=== PATIENT | male | born 1945 | race Caucasian/White ===

== ENCOUNTER 2016-12-05 04:36 | Inpatient (IN) | payer MEDICARE, BC ==
[~2016-12-05] VITALS: Ht 190.5 cm; Wt 109.8 kg
--- NOTE | 2016-12-05 04:55 | NUR ---
Patient BIB private ambulance from [facility] for Medical Clearance and GPS admission. Patient arrives on 5150 hold for DTS. Per hold, patient recently broke up with his girlfriend after which he was found on the roof of a parking structure sending text messages that indicated SI to his girlfriend who states that "if you let him go tonight he will kill himself." To room 4B. Patient A/O x4, ambulatory with a steady gait, calm and cooperative with staff. BECKIED reviewed medical clearance, orders received.
[2016-12-05] MEDS ORDERED: TESTOSTERONE CYPIONATE (05:07)
[2016-12-05] MEDS ORDERED: CIALIS 5 MG (05:07)
[2016-12-05] MEDS ORDERED: ATORVASTATIN 80 MG TABLET (05:07)
[2016-12-05] MEDS ORDERED: METOPROLOL TARTRATE 25 MG TAB (05:08)
[2016-12-05] MEDS ORDERED: VYVANSE 30 MG (05:08)
[2016-12-05] MEDS ORDERED: PROAIR HFA 90 MCG INHALER (05:08)
[2016-12-05] MEDS ORDERED: CLOPIDOGREL 75 MG TABLET (05:08)
[2016-12-05] MEDS ORDERED: [UNRECOGNIZED DRUG - REMARK] (05:08)
--- NOTE | 2016-12-05 05:08 | NUR ---
PT UNABLE TO GIVE ME THE NAMES OF HIS MEDS.STATES HE CAN GET THEM FROM FAMILY MEMBER LATER ON THIS AM.MEDICATIONS SHOWN ARE THE MEDS THAT APPEAR WHEN PTS LIST THEIR PHARMACY.NO FREQUENCY SHOWN
--- NOTE | 2016-12-05 05:28 | NUR ---
Pt. admitted to GPS, under care of Dr. Castañeda Belongs List completed
[2016-12-05 06:10] VITALS: BP 111/74
[2016-12-05] MEDS ORDERED: MAG HYDROX/AL HYDROX/SIMETH 30 ML LIQUID UDC PO PRN (06:15)
[2016-12-05] MEDS ORDERED: LORAZEPAM 1 MG TABLET PO PRN (06:15)
[2016-12-05] MEDS ORDERED: MAGNESIUM HYDROXIDE 30 ML LIQUID UDC PO PRN (06:15)
[2016-12-05] MEDS ORDERED: ACETAMINOPHEN 325 MG TABLET PO PRN (06:15)
[2016-12-05] MEDS ORDERED: TEMAZEPAM 7.5 MG CAPSULE PO PRN (06:15)
[2016-12-05 07:30] VITALS: BP 109/67
--- NOTE | 2016-12-05 07:46 | NUR ---
GPS/NSG Patient is a 71 yr old male admitted on a 5150 Danger to self from [facility]. Patient presented to the Emergency Room at [facility] after he drank an entire bottle of wine and told his girlfriend who had just broken up with him that he was going to kill himself. On arrival patient denied suicidal ideation or intent, stated he did not mean what he said. Patient has no psychiatric history and is admitted under the care of Dr. Castañeda. Patient skin is bruised pictures taken and documented in chart. Niece called, message left. Will endorse to next shift to clarify medication history the dosages, frequency and route are unclear.Initiate plan of care. Monitor for safety.
[2016-12-05] MEDS ORDERED: INSULIN REGULAR, HUMAN 300 UNIT/3 ML VIAL SQ PRN (09:45)
[2016-12-05] MEDS ORDERED: INSULIN REGULAR, HUMAN 300 UNITS/3 ML VIAL SQ PRN (09:45)
[2016-12-05] MEDS ORDERED: DEXTROSE 50% 50 ML DISP.SYRIN IV PRN (09:45)
[2016-12-05] MEDS: CLOPIDOGREL 75 MG TABLET PO SCH (10:30)
[2016-12-05] MEDS: METOPROLOL TARTRATE 25 MG TABLET PO SCH ×2 (10:39→20:36)
[2016-12-05] MEDS ORDERED: BLOOD SUGAR DIAGNOSTIC 1 EACH STRIP VI SCH (11:30)
[2016-12-05 16:09] VITALS: BP 117/77
[2016-12-05 20:02] VITALS: BP 110/66
[2016-12-05] MEDS: TRAZODONE 50 MG TABLET PO SCH (20:36)
[2016-12-05] MEDS: ATORVASTATIN 40 MG TABLET PO SCH (20:40)
[2016-12-05] MEDS ORDERED: TRAZODONE 50 MG TABLET ONE (20:46)
[2016-12-06 07:50] VITALS: BP 96/50
[2016-12-06] MEDS: CLOPIDOGREL 75 MG TABLET PO SCH (08:59)
[2016-12-06] MEDS: METOPROLOL TARTRATE 25 MG TABLET PO SCH ×2 (09:00→20:01)
--- NOTE | 2016-12-06 12:10 | NUR ---
Initial discharge instructions: Pt resides at home with his srinath [[id number] ,[place], [place],[address];[phone]].Per pt,he would like to return home upon discharge.NOAM called pt's Freya RANDOLPH [phone] to discuss discharge plans,but no answer.NOAM will speak with pt,srinath kyle,and MD regarding appropriate discharge plans.SW will form a safe and proper discharge plan.
[2016-12-06 15:00] VITALS: BP 123/76
[2016-12-06] MEDS: ATORVASTATIN 40 MG TABLET PO SCH (20:01)
[2016-12-06] MEDS: TRAZODONE 50 MG TABLET PO SCH (20:01)
[2016-12-06 20:10] VITALS: BP 126/76
[2016-12-07 07:47] VITALS: BP 112/56
[2016-12-07 07:48] LABS: BASOPHILS % (AUTO) 0.1 % (0.0-2.0); EOSINOPHILS # (AUTO) 0.5 K/uL (0.0-0.7); EOSINOPHILS % (AUTO) 1.1 % (0.0-7.0); HEMATOCRIT 47.7 % (40-50); HEMOGLOBIN 16.4 G/DL (14.0-18.0); LYMPHOCYTES # (AUTO) 40.9 K/UL (0.8-4.8); LYMPHOCYTES % (AUTO) 86.5 % (20.5-51.5); MEAN CORPUSCULAR HEMOGLOBIN 30.8 UUG (27.0-31.0); MEAN CORPUSCULAR HGB CONC 34 g/dL (32.0-37.0); MEAN CORPUSCULAR VOLUME 89.8 FL (82.0-92.0); MONOCYTES # (AUTO) 1.1 K/UL (0.1-1.30); MONOCYTES % (AUTO) 2.3 % (0.0-11.0); NEUTROPHILS # (AUTO) 4.7 K/UL (1.8-8.9); PLATELET COUNT (AUTO) 120 K/UL (150-450); RED BLOOD CELL COUNT(AUTO) 5.32 MIL/UL (4.7-6.1)
[2016-12-07 07:59] LABS: WHITE BLOOD COUNT (AUTO) 47.2 K/UL (4.0-11.2)
[2016-12-07 08:07] LABS: CREATININE 1.5 mg/dL (0.6-1.3); MAGNESIUM 2.2 mg/dL (1.8-2.4); PHOSPHOROUS 3.3 mg/dL (2.5-4.9)
--- NOTE | 2016-12-07 08:15 | NUR ---
GPS: Nursing Notes: Critical Value: At 07:55 got a call from Lab: Aaron Cohen: Critical value WBC= 47.2. 0800 Randall Michael, TIARA was page. [phone] Dr. Sarabia, called back, he was informed that patient WBC=47.2 and has a history of Leukemia and on 12/05/16 WBC=[address] [facility]. He stated that "he will follow up". No further orders were given at this time continue with treatment plan.
[2016-12-07] MEDS: CLOPIDOGREL 75 MG TABLET PO SCH (09:00)
[2016-12-07] MEDS: METOPROLOL TARTRATE 25 MG TABLET PO SCH ×2 (09:01→20:17)
[2016-12-07 11:24] LABS: EOSINOPHILS % (MANUAL) 1 % (0-8); LYMPHOCYTES % (MANUAL) 87 % (20-40); MONOCYTES % (MANUAL) 2 % (2-10); NEUTROPHILS % (MANUAL) 10 % (42-75)
[2016-12-07 15:11] VITALS: BP 105/64
[2016-12-07 15:52] LABS: *BILIRUBIN,URIN NEGATIVE (NEGATIVE); *BLOOD, URINE 1+ (NEGATIVE); *CLARITY,URINE CLEAR (CLEAR); *COLOR,URINE YELLOW (YELLOW); *KETONES,URINE NEGATIVE (NEGATIVE); *PROTEIN,URINE NEGATIVE (NEGATIVE); *UROBILINOGEN,URINE 0.2 E.U./dl (NORMAL); LEUKOCYTE ESTERASE ,URINE NEGATIVE (NEGATIVE); NITRITE, URINE NEGATIVE (NEGATIVE); PH,URINE 5.5 (5.0-8.0); UGLUCOSE NEGATIVE (NEGATIVE)
[2016-12-07 16:21] LABS: *CREATININE,URINE 33.7 mg/dL (30-125)
[2016-12-07 16:28] LABS: *URINE TOTAL PROTEIN RANDOM < 6.0 mg/dL (<150/24HR)
[2016-12-07] MEDS: CLONAZEPAM 0.5 MG TABLET PO SCH (16:42)
[2016-12-07 17:26] LABS: WBC,URINE NONE SEEN /HPF (0-3)
[2016-12-07] MEDS: TRAZODONE 50 MG TABLET PO SCH (20:17)
[2016-12-07] MEDS: ATORVASTATIN 40 MG TABLET PO SCH (20:17)
[2016-12-07 20:21] VITALS: BP 118/69
[2016-12-08 07:30] VITALS: BP 103/64
[2016-12-08 07:49] LABS: BASOPHILS # (AUTO) 0.2 K/uL (0.0-8.0); BASOPHILS % (AUTO) 0.5 % (0.0-2.0); EOSINOPHILS # (AUTO) 0.5 K/uL (0.0-0.7); HEMOGLOBIN 16.4 G/DL (14.0-18.0); LYMPHOCYTES # (AUTO) 41.6 K/UL (0.8-4.8); LYMPHOCYTES % (AUTO) 83.1 % (20.5-51.5); MEAN CORPUSCULAR HEMOGLOBIN 30.6 UUG (27.0-31.0); MEAN CORPUSCULAR HGB CONC 34 g/dL (32.0-37.0); MEAN CORPUSCULAR VOLUME 89.6 FL (82.0-92.0); MONOCYTES # (AUTO) 1.8 K/UL (0.1-1.30); MONOCYTES % (AUTO) 3.7 % (0.0-11.0); NEUTROPHILS # (AUTO) 5.8 K/UL (1.8-8.9); NEUTROPHILS % (AUTO) 11.7 % (38.5-71.5); PLATELET COUNT (AUTO) 122 K/UL (150-450); RED BLOOD CELL COUNT(AUTO) 5.36 MIL/UL (4.7-6.1)
--- NOTE | 2016-12-08 08:05 | NUR ---
0753 Received a critical value WBC -49.9. 0800 SIX SIGMA PROJECT MANAGER, Ely Beaulieu notified with no further order. Patient has Dx. Chronic Lymphocytic Leukemia and patient already seen by bindery leadperson yesterday.
[2016-12-08 08:10] LABS: THYROID STIMULATING HORMONE 1.817 mIU/mL (0.358-3.740); WHITE BLOOD COUNT (AUTO) 49.9 K/UL (4.0-11.2)
[2016-12-08] MEDS: CLOPIDOGREL 75 MG TABLET PO SCH (08:11)
[2016-12-08] MEDS: CLONAZEPAM 0.5 MG TABLET PO SCH ×3 (08:12→18:01)
[2016-12-08] MEDS: METOPROLOL TARTRATE 25 MG TABLET PO SCH ×2 (08:13→21:00)
[2016-12-08 09:34] LABS: BILIRUBIN,TOTAL 1.8 mg/dL (0.2-1.0); CREATININE 1.4 mg/dL (0.6-1.3); PHOSPHOROUS 3.6 mg/dL (2.5-4.9); POTASSIUM 4.5 mmol/L (3.5-5.1); TOTAL PROTEIN, SERUM 6.6 g/dL (6.4-8.2)
[2016-12-08 11:02] LABS: LYMPHOCYTES % (MANUAL) 82 % (20-40); MONOCYTES % (MANUAL) 3 % (2-10); NEUTROPHILS % (MANUAL) 15 % (42-75)
[2016-12-08 16:00] VITALS: BP 100/73
[2016-12-08 19:58] VITALS: BP 114/69
[2016-12-08] MEDS: ATORVASTATIN 40 MG TABLET PO SCH (20:28)
[2016-12-08] MEDS: TRAZODONE 50 MG TABLET PO SCH (20:28)
[2016-12-09 07:30] VITALS: BP 122/69
[2016-12-09] MEDS: CLONAZEPAM 0.5 MG TABLET PO SCH ×3 (08:58→16:38)
[2016-12-09] MEDS: CLOPIDOGREL 75 MG TABLET PO SCH (08:58)
[2016-12-09] MEDS: METOPROLOL TARTRATE 25 MG TABLET PO SCH ×2 (09:00→20:15)
[2016-12-09 10:49] VITALS: BP 114/80
[2016-12-09 16:00] VITALS: BP 123/63
[2016-12-09] MEDS: CEPHALEXIN MONOHYDRATE 500 MG CAPSULE PO SCH ×2 (16:38→22:17)
--- NOTE | 2016-12-09 18:50 | NUR ---
GPS/RN- KULDIP 1700 DOSE. PATIENT VERBALIZING HE DOES NOT NEED DOSE. HE EXERCISES SO HE WALKS A LOT HE DOES AT HOME. VERBALIZES HE IS NOT ANXIOUS.
[2016-12-09 20:14] VITALS: BP 128/80
[2016-12-09] MEDS: TRAZODONE 50 MG TABLET PO SCH (20:14)
[2016-12-09] MEDS: ATORVASTATIN 40 MG TABLET PO SCH (20:14)
[2016-12-10] MEDS: CEPHALEXIN MONOHYDRATE 500 MG CAPSULE PO SCH ×3 (05:36→21:47)
[2016-12-10 07:30] VITALS: BP 111/60
[2016-12-10] MEDS: METOPROLOL TARTRATE 25 MG TABLET PO SCH ×2 (09:00→21:00)
[2016-12-10] MEDS: CLONAZEPAM 0.5 MG TABLET PO SCH ×4 (09:00→17:00)
[2016-12-10] MEDS: CLOPIDOGREL 75 MG TABLET PO SCH (10:04)
[2016-12-10 15:27] VITALS: BP 119/75
--- NOTE | 2016-12-10 18:30 | NUR ---
PATIENT HAS BEEN VISIBLE ALL SHIFT PACING HALLWAY, REFUSES TO TAKE KLONOPIN AND TAKE ANTIBIOTICS THIS SHIFT NO S.I. COMPLIANT WITH MILIEU
[2016-12-10 20:07] VITALS: BP 117/75
[2016-12-10] MEDS: ATORVASTATIN 40 MG TABLET PO SCH (21:47)
[2016-12-10] MEDS: TRAZODONE 50 MG TABLET PO SCH (21:47)
[2016-12-11] MEDS: CEPHALEXIN MONOHYDRATE 500 MG CAPSULE PO SCH ×3 (06:47→21:49)
[2016-12-11 07:50] LABS: BILIRUBIN,TOTAL 1.8 mg/dL (0.2-1.0); CREATININE 1.4 mg/dL (0.6-1.3); MAGNESIUM 2.2 mg/dL (1.8-2.4); PHOSPHOROUS 2.5 mg/dL (2.5-4.9); TOTAL PROTEIN, SERUM 6.9 g/dL (6.4-8.2)
[2016-12-11 07:59] LABS: BASOPHILS # (AUTO) 0.5 K/uL (0.0-8.0); BASOPHILS % (AUTO) 1.1 % (0.0-2.0); EOSINOPHILS # (AUTO) 0.6 K/uL (0.0-0.7); EOSINOPHILS % (AUTO) 1.3 % (0.0-7.0); HEMATOCRIT 47.7 % (40-50); HEMOGLOBIN 16.5 G/DL (14.0-18.0); LYMPHOCYTES % (AUTO) 81.9 % (20.5-51.5); MEAN CORPUSCULAR HEMOGLOBIN 30.4 UUG (27.0-31.0); MEAN CORPUSCULAR HGB CONC 35 g/dL (32.0-37.0); MEAN CORPUSCULAR VOLUME 87.8 FL (82.0-92.0); MONOCYTES # (AUTO) 1.4 K/UL (0.1-1.30); MONOCYTES % (AUTO) 3.2 % (0.0-11.0); NEUTROPHILS # (AUTO) 5.6 K/UL (1.8-8.9); NEUTROPHILS % (AUTO) 12.5 % (38.5-71.5); PLATELET COUNT (AUTO) 115 K/UL (150-450); RED BLOOD CELL COUNT(AUTO) 5.44 MIL/UL (4.7-6.1)
[2016-12-11 08:07] LABS: WHITE BLOOD COUNT (AUTO) 45.1 K/UL (4.0-11.2)
[2016-12-11] MEDS: METOPROLOL TARTRATE 25 MG TABLET PO SCH ×2 (08:57→21:00)
[2016-12-11] MEDS: CLONAZEPAM 0.5 MG TABLET PO SCH ×3 (08:57→17:00)
[2016-12-11] MEDS: CLOPIDOGREL 75 MG TABLET PO SCH (08:57)
[2016-12-11 11:15] LABS: EOSINOPHILS % (MANUAL) 2 % (0-8); LYMPHOCYTES % (MANUAL) 81 % (20-40); MONOCYTES % (MANUAL) 4 % (2-10); NEUTROPHILS % (MANUAL) 13 % (42-75)
[2016-12-11 15:00] VITALS: BP 126/80
[2016-12-11 20:14] VITALS: BP 104/78
[2016-12-11] MEDS: TRAZODONE 50 MG TABLET PO SCH (21:46)
[2016-12-11] MEDS: ATORVASTATIN 40 MG TABLET PO SCH (21:46)
[2016-12-12] MEDS: CEPHALEXIN MONOHYDRATE 500 MG CAPSULE PO SCH ×3 (05:38→21:44)
[2016-12-12 07:30] VITALS: BP 119/77
[2016-12-12] MEDS: METOPROLOL TARTRATE 25 MG TABLET PO SCH ×2 (08:19→21:00)
[2016-12-12] MEDS: CLONAZEPAM 0.5 MG TABLET PO SCH ×3 (08:19→16:34)
[2016-12-12] MEDS: CLOPIDOGREL 75 MG TABLET PO SCH (08:19)
[2016-12-12 15:43] VITALS: BP 126/81
[2016-12-12 20:06] VITALS: BP 125/74
[2016-12-12] MEDS: ATORVASTATIN 40 MG TABLET PO SCH (21:37)
[2016-12-12] MEDS: TRAZODONE 50 MG TABLET PO SCH (21:37)
[2016-12-13] MEDS: CEPHALEXIN MONOHYDRATE 500 MG CAPSULE PO SCH ×3 (05:49→21:57)
[2016-12-13 07:30] VITALS: BP 108/66
[2016-12-13] MEDS: CLOPIDOGREL 75 MG TABLET PO SCH (08:33)
[2016-12-13] MEDS: METOPROLOL TARTRATE 25 MG TABLET PO SCH ×2 (08:37→21:57)
[2016-12-13] MEDS: CLONAZEPAM 0.5 MG TABLET PO SCH ×3 (08:37→17:00)
[2016-12-13 17:09] VITALS: BP 115/72
[2016-12-13 20:00] VITALS: BP 132/81
--- NOTE | 2016-12-13 20:00 | NUR ---
PATIENT RECEIVED SITTING IN DAYROOM WATCHING TV. PT IS CALM AND COOPERATIVE. DENIES SUICIDAL/HOMICIDAL IDEATIONS. WILL CONTINUE TO MONITOR FOR SAFETY.
[2016-12-13] MEDS: TRAZODONE 50 MG TABLET PO SCH (21:56)
[2016-12-13] MEDS: ATORVASTATIN 40 MG TABLET PO SCH (21:56)
[2016-12-14] MEDS: CEPHALEXIN MONOHYDRATE 500 MG CAPSULE PO SCH ×3 (06:35→21:21)
[2016-12-14 07:52] VITALS: BP 110/70
[2016-12-14] MEDS: CLOPIDOGREL 75 MG TABLET PO SCH (09:08)
[2016-12-14] MEDS: METOPROLOL TARTRATE 25 MG TABLET PO SCH ×2 (09:09→20:40)
[2016-12-14 15:52] VITALS: BP 125/72
[2016-12-14 20:32] VITALS: BP 119/75
[2016-12-14] MEDS: TRAZODONE 50 MG TABLET PO SCH (20:32)
[2016-12-14] MEDS: ATORVASTATIN 40 MG TABLET PO SCH (20:32)
[2016-12-15] MEDS: CEPHALEXIN MONOHYDRATE 500 MG CAPSULE PO SCH ×2 (06:36→14:09)
[2016-12-15 07:30] VITALS: BP 133/76
[2016-12-15 08:22] VITALS: BP 133/76
[2016-12-15] MEDS: METOPROLOL TARTRATE 25 MG TABLET PO SCH (08:22)
[2016-12-15] MEDS: CLOPIDOGREL 75 MG TABLET PO SCH (08:22)
--- NOTE | 2016-12-15 11:22 | NUR ---
DC Note: Patient will be discharged to [facility] [[address] [place] [id number];[phone]] via ambulance at 12:00 pm. Please schedule an ambulance for the patient. Spoke with Sully at the facility who stated they would accept the patient today. Spoke with patient's Niece/DPOA, Freya Calabrese [phone] who is aware and agreeable with discharge plans. Patient is aware and agreeable with discharge plans. Patient will follow-up with (Offset Duplicating Machine Operator) and (Psychiatrist) at the facility.
--- NOTE | 2016-12-15 12:30 | NUR ---
Called [facility], SNF spoke with Melanie Flores RN - informed about patient will be discharged to their facility. Report given to RN regarding patient diagnosis, medications to continue upon discharge and patient mental/medical stable. 1415 Patient picked up by ambulance and transfer to the facility . Patient alert and ox4. Denies SI/HI. No hallucinations/nodelusions noted.
== END 2016-12-15 14:15 | DRG 881 ==
LOC: ER 04:38 → GPS 05:24
PROVIDERS: ADMIT Psychiatry & Neurology Psychiatry; ATTEND Nurse Practitioner Acute Care
DX: F32.9 Major depressive disorder, single episode, unspecified (principal); N17.0 Acute kidney failure with tubular necrosis; C91.10 Chronic lymphocytic leukemia of B-cell type not having achieved remission; L03.115 Cellulitis of right lower limb; G89.4 Chronic pain syndrome; I11.9 Hypertensive heart disease without heart failure; D69.6 Thrombocytopenia, unspecified; I25.2 Old myocardial infarction; M54.5 Low back pain; M19.90 Unspecified osteoarthritis, unspecified site; M25.821 Other specified joint disorders, right elbow; I25.10 Atherosclerotic heart disease of native coronary artery without angina pectoris; Z95.5 Presence of coronary angioplasty implant and graft; F91.8 Other conduct disorders
CPT/HCPCS: 36415; 71010; 82746; 83735; 84100; 84156; 84300; 84443; 85025; 87086; 93005; A4663; J1815